=== PATIENT | male | born 1955 | race African-American/Black ===

== ENCOUNTER 2017-05-09 12:49 | Emergency (ER) | payer MEDICARE, MEDICAID ==
[~2017-05-09] VITALS: Ht 180.3 cm; Wt 78.0 kg
[2017-05-09 16:40] VITALS: BP 165/73
== END 2017-05-09 16:45 | disposition left against medical advice (07) ==
LOC: ER 13:01
DX: Z53.21 Procedure and treatment not carried out due to patient leaving prior to being seen by health care provider (principal)